=== PATIENT | male | born 1970 | race Caucasian/White ===

== ENCOUNTER 2023-11-30 07:35 | Emergency (ER) | payer BC ==
[~2023-11-30] VITALS: Ht 182.9 cm; Wt 101.0 kg
[2023-11-30 08:05] VITALS: TEMP 98.3; O2SAT 98
[2023-11-30] MEDS ORDERED: PRED10TA MT (09:12)
[2023-11-30] MEDS ORDERED: B50 MT (09:13)
[2023-11-30 09:45] VITALS: BP 170/90; PULSE 80; RESP 15
== END 2023-11-30 09:47 | disposition home or self-care (01) ==
LOC: ER 08:04
DX: L23.7 Allergic contact dermatitis due to plants, except food (principal); I10 Essential (primary) hypertension; Z88.2 Allergy status to sulfonamides
CPT/HCPCS: 99283